=== PATIENT | male | born 1970 | race Caucasian/White ===

== ENCOUNTER 2023-04-17 22:54 | Inpatient (IN) | payer OTHER, SELFPAY ==
[2023-04-17 17:42] VITALS: BP 133/85
[2023-04-17 18:11] LABS: % Basophils 0.5 % (0-2); % Eosinophils 1.7 % (0-6); % Immature Granulocytes 0.4 % (0-0.5); % Lymphocytes 20.8 % (20.5-51.1); % Monocytes 7.4 % (1.7-9.3); % Neutrophils 69.2 % (42.2-75.2); Absolute Basophils 0.1 10^3/uL (0-0.2); Absolute Eosinophils 0.2 10^3/uL (0-0.7); Absolute Lymphocytes 2.1 10^3/uL (1.2-3.4); Absolute Monocytes 0.7 10^3/uL (0.1-0.6); Absolute Neutrophils 6.9 10^3/uL (1.4-6.5); Hematocrit 40.6 % (39.0-52.0); Hemoglobin 14.6 g/dL (13.0-18.0); Mean Corpuscular Hgb 32.3 pg (27.0-31.0); Mean Corpuscular Volume 89.8 fL (80.0-94.0); Mean Platelet Volume 10.2 fL (7.4-10.4); Nucleated Red Blood Cells % 0 % (-); Platelet Count 256 10^3/uL (130-400); Red Blood Cell Count 4.52 10^6/uL (4.70-6.10); Red Cell Dist. Width 12.6 % (11.5-14.5)
[2023-04-17 18:21] LABS: APTT 31.9 Sec (23.4-35.0); INR 1.15; PT 14.5 Sec (11.4-14.6)
[2023-04-17 18:27] LABS: ALT (SGPT) 36 U/L (0-50); AST (SGOT) 35 U/L (17-59); Albumin 4.2 g/dl (3.5-5.0); Alkaline Phosphatase 46 U/L (38-126); Blood Urea Nitrogen 20 mg/dl (9-20); Calcium 9.3 mg/dl (8.4-10.2); Carbon Dioxide 27 mmol/L (22-30); Chloride 98 mmol/L (98-107); Glucose 138 mg/dl (70-99); Potassium 3.6 mmol/L (3.5-5.1); Sodium 135 mmol/L (135-145); Total Bilirubin 1.2 mg/dl (0.2-1.3); Total Protein 6.7 g/dl (6.3-8.2); eGFR > 60.00
[2023-04-17 18:34] LABS: Troponin I < 0.012 ng/ml
--- NOTE | 2023-04-17 21:00 | ED.GENMED ---
History of Present Illness
General
Chief Complaint: Chest Pain
Source: patient
Exam Limitations: none
Time Seen by Provider: 04/17/23 20:23
Nursing documentation reviewed up to this point in time: agreed with
Travel History
Have you had any contact with someone who has COVID-19?: No
Do you have any symptoms of coronavirus? Fever > 100 degrees, chills, cough, shortness of breath, sore throat, loss of taste or smell, muscle aches, or headache?: No
History of Present Illness
History of Present Illness:
Patient is a 52-year-old male with history of NH in 2019, with ICD placement at that time, stent with last NH, September 2022 presents to the ER for evaluation. Patient reports yesterday morning he had bilateral armpit discomfort and was concerned
because he had similar symptoms during his previous NH in September. He does report however it was on a less severe scale. He reports he has had intermittent armpit discomfort since. Today however yesterday he has had some intermittent left arm
numbness. He denies any actual chest pain. He denies any actual shortness of breath. He is on aspirin and Brilinta. He took both doses this morning he is due for second dose of Brilinta this evening. He is followed by Dr. Rufus Rahman.
Review of Systems
Review of Systems
Allergies reviewed?: Yes
All Other Systems: ROS reviewed and negative except as documented in HPI and ROS
Constitutional: Reports no symptoms; Denies fever, fatigue or chills
Respiratory: Reports no symptoms
Cardiac: Reports other (discomfort to b/l arm pits )
ABD/GI: Reports no symptoms; Denies abdominal pain, nausea, vomiting or diarrhea
: Reports no symptoms
Musculoskeletal: Reports no symptoms
Skin: Reports no symptoms
Neurological: Reports no symptoms
Hematologic/Lymphatic: Reports no symptoms
Psychiatric: Reports no symptoms
Phy Exam
General Physical Exam
General Presentation: no apparent distress
General age: appears stated age
General Skin: warm and dry
General Habitus: normal
General Mental: alert
General Hydration: appears well hydrated
Cardiovascular Exam
Cardiovascular Exam: regular rate/rhythm, no murmur and normal peripheral pulses
Pulmonary Exam
Pulmonary Exam: lungs clear and no respiratory distress
Neurological Exam
Neurological Exam: alert and oriented x3
Bo Coma Scale
Eye Opening: Spontaneous
Motor Response: Obeys Commands
Musculoskeletal Exam
Musculoskeletal Exam: full ROM
Skin Exam
Skin Exam: normal color and warm/dry
Psychiatric Exam
Psychiatric Exam: normal mood/affect
Scores
Heart Score for Chest Pain Patients
STEMI patient?: Not applicable
Course
Orders/Labs/Results
Orders:
Orders
04/17/23 17:44
Electrocardiogram (*1) Urgent
Reason for Study: Chest Pain
EKG- Treatment ONCE
04/17/23 17:51
Complete Blood Count/With Diff Urgent
Comprehensive Metabolic Panel Urgent
Creatine Phosphokinase Urgent
Comment: ADD ON
Protime/PTT Urgent
Troponin I Urgent
04/17/23 21:23
Electrocardiogram (*1) Stat
Reason for Study: Other
Other Reason for Exam: chest pain
EKG- Treatment ONCE
04/17/23 21:28
Nitroglycerin Sublingual [Nitrostat (Sublingual)] 0.4 mg SL NOW STA
04/17/23 21:48
Troponin I Urgent
04/17/23 22:20
Add On- LAB Urgent
Tests Added?: cpk
Admit/Transfer Patient As Directed
Co-Sign Provider:
Level of Care: Inpatient admission
Assign to:: Telemetry
Physician / Group: samira boss
Diagnosis: bilat axilla pain concer USa, neck back leg aches con.myalgia statin
Reason for Telemetry: Chest Pain syndromes
Date to Stop Telemetry: 04/19/23
Time to Stop Telemetry: 11:00
Reason for Hospitalization: bilat axilla pain concer USa, neck back leg aches con.myalgia statin
Expected length of stay greater than two midnights?: Yes
ELOS- Estimated Length of Stay in days: 3
I certify the patient meets the requirements for IP care: Yes
Code Status As Directed
Resuscitation Status: Full Code
04/17/23 22:24
Nitroglycerin Sublingual [Nitrostat (Sublingual)] 0.4 mg SL [id number] PRN
04/17/23 22:25
Chest [CR Chest - 2 Views ] Urgent
Comment:
Reason For Exam: cp
04/17/23 23:00
Flush (0.9% Sodium Chloride) [Flush (Nss)] See Dose Instructions IV PER PROTOCOL
04/18/23 00:30
Troponin I Urgent
04/18/23 18:00
Atorvastatin [Lipitor] 40 mg PO QPM
04/19/23 11:00
DC Protocol for Telemetry ONCE
Abnormal Lab Results
04/17/23
17:51
RBC 4.52 L 10^6/uL
(4.70-6.10)
MCH 32.3 H pg
(27.0-31.0)
Absolute Neuts (auto) 6.9 H 10^3/uL
(1.4-6.5)
Absolute Monos (auto) 0.7 H 10^3/uL
(0.1-0.6)
Glucose 138 H mg/dl
(70-99)
04/17/23 17:51
04/17/23 17:51
Vital Signs
Initial and Last Documented VS:
Initial Vital Signs
Temp Pulse Resp BP Pulse Ox
99.2 F 63 18 133/85 99
04/17/23 17:42 04/17/23 17:42 04/17/23 17:42 04/17/23 17:42 04/17/23 17:42
Last Documented Vital Signs
Temp Pulse Resp BP Pulse Ox
99.2 F 65 10 142/91 95
04/17/23 17:42 04/17/23 22:15 04/17/23 22:15 04/17/23 22:00 04/17/23 22:15
Carpet Repairer consulted with Physician
Carpet Repairer consulted with physician?: Yes
Name of Physician Consulted: noh
MDM/Problems Addressed
Differential Diagnosis Includes:
Not limited to ACS
MDM/Problems Addressed:
Patient is a 52-year-old male with history of high cholesterol hypertension diabetes NH x 2 with AICD and stent presents to the ER today with intermittent pain in bilateral and some left intermittent arm numbness. He does report that this
discomfort in his armpits is similar to when he had his previous NH this past September however less intense. No acute findings on EKG negative cardiac troponin initially. Patient has no shortness of breath. No other lab abnormalities. Case reviewed
with ED physician Case reviewed with cardiology on-call Dr. Raymond will give nitro if needed however presently 2139 pt is asymptomatic. Patient require admission with high risk history and concerning symptoms that were similar to previous NH.
2031:repeat trop is neg
Chronic conditions affecting care:
Previous NH x 2 AICD stent hypertension hyperlipidemia high cholesterol
*Pulse Oximetry
Patient hypoxic: no
*EKG
Interpreted by ED Provider?: Yes
Interpretation: abnormal
Heart Rate: 56
Rate: normal
Rhythm: sinus
Ischemia: non-specific ST changes
*Critical Care Note
Total Time (30-74mins, 75-104mins- exclusive of procedures): Not Applicable
Data Reviewed
Review of Other/Old Records Reveals: Labs and Discharge Summary
Patient Management
Discussion with other providers: Second Steward (Dr Vineet Raymond )
ED Attending Note
-
Portions of this chart may have been created with voice recognition software.� Occasional wrong word or��sound alike� substitutions may have occurred due to the inherent limitations of voice recognition software.
Discharge Plan
Departure
Patient Disposition: Admit
Date of Disposition: 04/17/23
Time of Disposition: 21:51
Admit to: Telemetry
Admit to doctor: hospitalist
Presentation/result/management discussed w/ accepting MD/DO: Hospitalist
Patient with high blood pressure during this ER visit?: Yes
Condition: Fair
Covid-19: Not Applicable
Discharge Problem:
Chest pain
Prescriptions:
No Action
aspirin 81 mg Tablet,Chewable
81 mg PO DAILY Qty: 0 0RF
Brilinta 90 mg tablet
90 mg PO Q12H Qty: 60 0RF
carvedilol 12.5 mg tablet
12.5 mg PO BID Qty: 0 0RF
lisinopril-hydrochlorothiazide 20-25 mg tablet
1 tab PO DAILY Qty: 0 0RF
esomeprazole magnesium [Nexium] 20 mg Capsule,Delayed Release(Dr/Ec)
20 mg PO DAILY Qty: 0 0RF
Glucosamine Chondroitin 550-30-1 mg Capsule
1 cap PO BID Qty: 0 0RF
atorvastatin 80 mg tablet
80 mg PO HS Qty: 30 0RF
Referrals:
Radha Hung MD [Family Provider] -
Interventions
Interventions:
*Risk Screen - Suicide Last Done: 04/17/23 17:42
*General Assessment Last Done: 04/17/23 17:42
*Neglect/Abuse Screening Last Done: 04/17/23 17:42
*ED COVID-19 Vaccine History Last Done: 04/17/23 17:42
[2023-04-17 21:21] VITALS: BP 129/84
--- NOTE | 2023-04-17 21:55 | HPS.HSE ---
Addendum entered and electronically signed by Lisa Natarajan MD 04/17/23 22:45:
Patient seen and examined independently with FORENSIC TOXICOLOGIST.� 52-year-old male past medical history of CAD status post stents, NSTEMI, ICD placement, hypertension, GERD, prediabetes, alcohol/marijuana, hypercholesteremia, use presenting with bilateral/left
intermittent armpit pain and left forearm numbness since yesterday morning reminiscent of his prior [place] symptoms.� Denies any symptoms currently.� EKG shows sinus bradycardia with fusion complexes heart rate of 59.� First troponin negative, continue
to trend.� History suggestive of unstable angina.� Check chest x-ray.� Cardiology consulted.� Continue aspirin/Brilinta/statin/Coreg. Check CPK and reduce statin dose due to concern for statin induced myalgias.�
Original Note:
Family Physician
-
Family Physician: Radha Hung
Chief Complaint
-
Bilateral axilla pain with numbness to bilateral arms left greater than right
History of Present Illness
52-year-old male complaining of bilateral axilla discomfort since yesterday a.m. upon wakening he reports some intermittent arm numbness left greater than right. He states this is similar to his previous TX in September 2022. He also reports headache
for the past 2 days, right neck and right mid back spasms for several weeks along with cramping in his legs especially the right lower leg. He reports he spoke with cardiology who advised to go down on his statin from 80 mg to 40 mg although he has
not done this yet. He also reports over the past several days worsening neuropathy to his feet with numbness and tingling. He currently is on aspirin, Brilinta, statin and beta-angelo of which he is compliant. He denies any current headache,
chest pain, shortness of breath, cough, fever, chills, palpitations, abdominal pain, nausea, vomiting, diarrhea, urinary symptoms. 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 He follows with Dr. Rahman [facility] cardiology. He has past medical
history of CAD/TX 2019, [place] 2022 with stent placement, ICD placement, HTN, HLD, GERD.
Medical History
Past Medical History
Past Medical History: Reports Other (TX in 2019 without stent placement, ICD, hypertension, prediabetes)
Past Surgical History: Reports None
Social History
Tobacco: Non-smoker
Alcohol: Former (Daily marijuana reported September 2022 admit)
Drug: Marijuana (Former September 2022)
Personal:
Living: With Family
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
Family History
Family History: CAD (Father [place] multiple stents, paternal uncles, grandfathers TX age 50 to 60s) and Other (Mother history of lung cancer, HTN, DM 2, father HTN, DM 2)
Allergies / Home Medications
Allergies reflects when Allergies were last updated in [facility].
Home Medications with original date entered in [employer]
Allergy/Medication List:
Allergies
Allergy/AdvReac Type Severity Reaction Status Date / Time
No Known Allergies Allergy Verified 10/03/22 17:50
Home Medications
aspirin 81 mg chewable tablet 81 mg PO DAILY Blood clot prevention/tx #0 tabs 10/05/22
atorvastatin 80 mg tablet 80 mg PO HS High cholesterol #30 tabs 10/05/22
carvedilol 12.5 mg tablet 12.5 mg PO BID Blood pressure #0 tabs 10/05/22
esomeprazole magnesium 20 mg capsule,delayed release (Nexium) 20 mg PO DAILY Gastrointestinal issue #0 caps 10/05/22
glucosamine sulf dipot chlr,msm,chond 550 mg-C 30 mg-chivo 1 mg capsule (Glucosamine Chondroitin) 1 cap PO BID Supplement #0 caps 10/05/22
lisinopril 20 mg-hydrochlorothiazide 25 mg tablet 1 tab PO DAILY Blood pressure #0 tabs 10/05/22
ticagrelor 90 mg tablet (Brilinta) 90 mg PO Q12H Blood clot prevention/tx #60 tabs 10/05/22
Review of Systems
-
History Source: Patient and Family
A 12 point ROS was completed and negative except as noted: Yes
Constitutional: Denies Fever, Fatigue or Chills
EENT: Denies Sore Throat, Mouth Pain or Runny Nose
Respiratory: Denies Cough or Trouble Breathing
Cardiac: Reports Other (Bilateral axilla pain with numbness to bilateral arms left greater than right); Denies Chest Pain, Diaphoresis, Palpitations or Syncope
Abdomen/GI: Denies Abdominal Pain, Nausea, Vomiting, Diarrhea, Constipated, Bloody Stools or Black Stools
: Denies Dysuria, Frequency, Flank Pain, Incontinence, Difficulty Voiding or Urgency
Musculoskeletal: Reports Other (Cramping to right side of neck, right mid back, right lower extremity); Denies Joint Pain or Edema
Neurological: Reports Headache (X 2 days currently resolved at present time) and Numbness (Bilateral arms left greater than right, bilateral legs); Denies Dizzy or Weakness
Endocrine: Reports No Symptoms
Hematologic/Lymphatic: Reports No Symptoms
Psych: Reports Calm
Physical Exam
Vital Signs
Vital Signs
Temp Pulse Resp BP Pulse Ox
99.2 F 63 18 129/84 100
04/17/23 17:42 04/17/23 17:42 04/17/23 17:42 04/17/23 21:21 04/17/23 21:22
Physical Exam
General: Comfortable, Conversant and Pain (2 out of 10); No Fever or Chills
HEENT: NormoCephalic, Anicteric, Moist mucous membranes, PERRLA, [place] Conjunctivae and No Ptosis
Respiratory: Clear; No Wheezes, Rales or Rhonchi
Cardiac: S1/S2 and Bradycardia (Sinus); No Murmur, Rub, Gallop or Peripheral Edema
Breast: Deferred by me
GI: Soft, Non Tender, Non Distended, Normal Bowel Sounds and No Hepatosplenomegaly
Rectal: Deferred by Provider
Genito-urinary: Deferred by me
Musculoskeletal: No Clubbing, No Cyanosis and No Edema
Neuro: AO x 3, No Motor Deficits, Nonfocal/grossly intact, No Sensory Deficits and DTR's Intact & Symmetrical; No Slurred Speech, Facial Droop or Tremors
Psych: Calm
Laboratory Results
-
04/17/23 17:51
04/17/23 17:51
Laboratory Results
PT 14.5 Sec (11.4-14.6) 04/17/23 17:51
INR 1.15 04/17/23 17:51
APTT 31.9 Sec (23.4-35.0) 04/17/23 17:51
Total Bilirubin 1.2 mg/dl (0.2-1.3) 04/17/23 17:51
AST 35 U/L (17-59) 04/17/23 17:51
ALT 36 U/L (0-50) 04/17/23 17:51
Alkaline Phosphatase 46 U/L (38-126) 04/17/23 17:51
Troponin I < 0.012 ng/ml 04/17/23 17:51
Impression/Plan
-
Impression/plan:
Admit to telemetry
#Bilateral arm pain concern for USA
#Hx TX/stents September 20222019
-Continue aspirin, statin, Brilinta, carvedilol 12.5 mg twice daily
-SL nitro as needed chest pain
-Consult cardiology
-Trend troponins 0.012, trend troponins and EKG
-Check lipid profile, reduce statin from 80 mg to 40 mg at bedtime, check CPK given muscle cramping to neck back legs times several weeks
-Check CXR
EKG: Sinus bradycardia 59 bpm otherwise normal, QTc 382 MS
#Neck, back, leg cramping concern for statin induced myalgias
#HLD
-Check lipid profile, reduce statin from 80 mg to 40 mg at bedtime, check CPK given muscle cramping to neck back legs times several weeks
#DM 2
BS 138
Accu-Cheks with SSI, check HgbA1c
#GERD
-Continue Nexium or equivalent
DVT prophylaxis
Continue Brilinta
Full code
[2023-04-17 22:00] VITALS: BP 142/91
[2023-04-17 22:21] LABS: Troponin I < 0.012 ng/ml
[2023-04-17 22:51] LABS: Creatine Phosphokinase 170 U/L (55-170)
[2023-04-18 00:35] VITALS: BP 135/83; BMI 26.8
[2023-04-18] MEDS: BRILINTA 90 MG PO ×2 (01:09→10:10)
[2023-04-18 03:05] LABS: % Basophils 0.6 % (0-2); % Immature Granulocytes 0.2 % (0-0.5); % Lymphocytes 26.8 % (20.5-51.1); % Monocytes 10.5 % (1.7-9.3); % Neutrophils 59.9 % (42.2-75.2); Absolute Basophils 0.1 10^3/uL (0-0.2); Absolute Eosinophils 0.2 10^3/uL (0-0.7); Absolute Lymphocytes 2.4 10^3/uL (1.2-3.4); Absolute Monocytes 0.9 10^3/uL (0.1-0.6); Absolute Neutrophils 5.3 10^3/uL (1.4-6.5); Hematocrit 39.5 % (39.0-52.0); Hemoglobin 14.1 g/dL (13.0-18.0); Mean Corp Hgb Conc. 35.7 g/dL (33.0-37.0); Mean Corpuscular Hgb 32.1 pg (27.0-31.0); Mean Platelet Volume 10.1 fL (7.4-10.4); Nucleated Red Blood Cells % 0 % (-); Platelet Count 214 10^3/uL (130-400); Red Blood Cell Count 4.39 10^6/uL (4.70-6.10); Red Cell Dist. Width 12.5 % (11.5-14.5); White Blood Cell Count 8.9 10^3/uL (4.8-10.8)
[2023-04-18 03:30] LABS: Troponin I < 0.012 ng/ml
[2023-04-18 03:31] LABS: Blood Urea Nitrogen 18 mg/dl (9-20); Calcium 8.9 mg/dl (8.4-10.2); Carbon Dioxide 27 mmol/L (22-30); Chloride 104 mmol/L (98-107); Estimated Creatinine Clearance 119 ml/min; Glucose 122 mg/dl (70-99); HDL Cholesterol 42 mg/dl; LDL Cholesterol, Calculated 52 mg/dl; Potassium 3.6 mmol/L (3.5-5.1); Sodium 134 mmol/L (135-145); Total Cholesterol 112 mg/dl (50-199); Triglyceride 92 mg/dl (10-149); Very Low Density Lipoprotein 18 mg/dl (0-30); eGFR > 60.00
[2023-04-18 03:40] VITALS: BP 110/56
[2023-04-18 07:00] VITALS: BP 128/77
[2023-04-18 07:46] LABS: Glucose - Point of Care 103 mg/dl (70-99)
[2023-04-18 08:37] LABS: Glycohemoglobin (HgbA1c) 6.3 % (4.0-5.6)
[2023-04-18] MEDS: LOW STRENGTH ASPIRIN 81 MG PO (08:52)
[2023-04-18] MEDS: PROTONIX 40 MG PO (08:52)
[2023-04-18] MEDS: COREG 12.5 MG PO (08:53)
--- NOTE | 2023-04-18 09:00 | CON.CAR ---
Addendum entered and electronically signed by Maldonado Savage MD 04/18/23 14:58:
I saw and examined the patient.
The Automobile Dealer's note was reviewed and I agree with the note.
Comment: Briefly, 52-year-old man past medical history of cardiac arrest s/p AICD (2019), CAD c/b NSTEMI (2022) who underwent PCI wiht drug-eluting stents to the LAD and RCA now presenting with bilateral axillary and arm discomfort/numbness which he
identifies as an anginal equivalent. Tells me that this discomfort has been ongoing intermittently for some time, is very mild (1 out of 10) and does not seem to be exertional in nature by his report. Troponin has been serially undetectable here.
ECG is nonischemic appearing.
Given that his pain is atypical by definition and he has ruled out for ACS we will arrange for outpatient ischemic evaluation; plan for exercise nuclear stress test to improve sensitivity
Continue DAPT, high intensity statin and beta-angelo
Stable for discharge from cardiology perspective
Original Note:
Consultation
Consultation Request
Date/Time Consultation Requested: 04/17/2023
Date/Time Consultation Performed: 04/18/2023
Requesting Provider: Dr. Natarajan
Performing Provider: Daysi Frankel PA-C for Dr. Savage
Reason for Consultation: Chest pain
Medical History
-
History of Present Illness:
Patient is a 52-year-old male with past medical history significant for cardiac arrest in setting of [place] August 2019 with no culprit coronary lesion on catheterization status post ICD, coronary artery disease with NSTEMI September 2022 with LAD and RCA DAVID,
hypertension, hyperlipidemia who presents to emergency department 04/17/2023 with bilateral arm/axillary discomfort, numbness which started 04/16/2023. Patient admits over the last 1 to 2 weeks he has been having intermittent pain in his upper back,
arms, back and legs after a long day at work. It was recommended he reduce his atorvastatin from 80 mg to 40 mg but he did not do this. He then developed bilateral axillary/arm pain (Lt>Rt) associated with some back discomfort which was similar to
his prior angina symptoms when he had his LA in September 2022. Given the symptoms he decided to come to the emergency department for evaluation. EKG on presentation showed sinus bradycardia without suggestion of ischemia. Troponin x 3 undetectable.
Chest x-ray no acute abnormality. CPK 170.
He continues to have intermittent bilateral shoulder/arm discomfort that is worse when he wakes up. Lasts for several seconds to several minutes. This seem less noticeable when he is active. He denies GERD or reflux symptoms that he had when he had
his LA.
Past medical history:
CAD
NSTEMI, peak trop 0.67 10/03/2022
s/p �mid LAD with a 3.0 x 38 mm Xience stent and �mid right coronary artery with a 3.5 x 15 mm Xience stent with noted ELEVATOR REPAIRER of OM3 (10/05/2023)
History of cardiac arrest in the setting of [place] in 08/2019 at [facility]
No culprit vessel by cardiac catheterization reportedly noted 08/2019
Status post single-chamber Biotronik ICD 08/2019
Hypertension
Hyperlipidemia
Past Medical History
Past Medical History: Other
Past Surgical History: Cardiac (cardiac caths x 2) and Tonsilectomy
Social History
Tobacco: Non-Smoker
Alcohol: Occasional
Drug: Marijuana (former)
Personal:
Living: With Family
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
Family History
Family History: CAD (father stents x 4), Cancer (mother lung CA), Diabetes and Hypertension
Allergies / Home Medications
Allergy/AdvReac Type Severity Reaction Status Date / Time
No Known Allergies Allergy Verified 10/03/22 17:50
Medication Instructions Recorded Confirmed Type
aspirin 81 mg chewable tablet 81 mg PO DAILY Blood clot 10/05/22 Rx
prevention/tx #0 tabs
atorvastatin 80 mg tablet 80 mg PO HS High cholesterol #30 10/05/22 Rx
tabs
carvedilol 12.5 mg tablet 12.5 mg PO BID Blood pressure #0 10/05/22 10/03/22 Rx
tabs
esomeprazole magnesium 20 mg 20 mg PO DAILY Gastrointestinal 10/05/22 10/03/22 Rx
capsule,delayed release (Nexium) issue #0 caps
glucosamine sulf dipot 1 cap PO BID Supplement #0 caps 10/05/22 10/03/22 Rx
chlr,msm,chond 550 mg-C 30 mg-chivo
1 mg capsule (Glucosamine
Chondroitin)
lisinopril 20 1 tab PO DAILY Blood pressure #0 10/05/22 10/03/22 Rx
mg-hydrochlorothiazide 25 mg tablet tabs
ticagrelor 90 mg tablet (Brilinta) 90 mg PO Q12H Blood clot 10/05/22 Rx
prevention/tx #60 tabs
Review of Systems
-
History Source: Patient
All other systems: Negative unless noted
Physical Exam
Vital Signs
Temp Pulse Resp BP Pulse Ox
98.7 F 60 18 128/77 99
04/18/23 07:00 04/18/23 08:53 04/18/23 07:00 04/18/23 08:53 04/18/23 07:00
GEN: No distress, awake, Ox3
HEENT: supple, anicteric, mmm
LUNGS: CTA, no wheezes/rales
CV: Reg, S1/S2, no murmur, rub or gallop
ABD: soft, BS+, NT/ND
EXT: No edema, clubbing or cyanosis
NEURO: Gross non-focal
SKIN: No rash, warm, dry, pink
Lab Results
04/18/23 02:50
04/18/23 02:50
Troponin I < 0.012 ng/ml 04/18/23 02:50
Impression / Plan
-
PCP:�Garcia Lambert
Composing Room Machinist Apprentice: Dr. Sohan Rahman
Impression:
Presents 04/17/2023 with bilateral arm/axillary discomfort, numbness
Headache
Back pain
Leg pain
CAD
NSTEMI, peak trop 0.67 10/03/2022
s/p �mid LAD with a 3.0 x 38 mm Xience stent and �mid right coronary artery with a 3.5 x 15 mm Xience stent with noted ELEVATOR REPAIRER of OM3 (10/04/2022)
History of cardiac arrest in the setting of [place] in 08/2019 at [facility]
No culprit vessel by cardiac catheterization reportedly noted 08/2019
Status post single-chamber Biotronik ICD 08/2019
Hypertension
Hyperlipidemia
ECHO 10/04/2022: EF 50 to 55%, hypokinesis of mid to apical septum, apical inferior, apical anterior juarez, mild concentric LVH, ICD wire in right ventricle noted, mild MR, aortic sclerosis, trace TR, PAP 20 to 25 mmHg
Cardiac catheterization 10/04/2022: LM: NL ; LAD: 95% mid stenosis s/p 3.0 x 38 mm Xience stent, apical tandem 50 to 60% narrowing with distal vessel supplying inferior wall; RAMUS: 30% mid; LCX: Luminal irregularities except OM 300% occluded at
origin with right to left collaterals; RCA: 70% mid stenosis s/p 3.5 x 15 mm Xience stent. Digital single-plane left ventricular ejection fraction is visually estimated at 50%.
Plan:
Patient is a 52-year-old male with past medical history significant for cardiac arrest in setting of [place] August 2019 with no culprit coronary lesion on catheterization status post ICD, coronary artery disease with NSTEMI September 2022 with LAD and RCA DAVID,
hypertension, hyperlipidemia who presents to emergency department 04/17/2023 with bilateral arm/axillary discomfort, numbness which started 04/16/2023. Patient admits over the last 1 to 2 weeks he has been having intermittent pain in his upper back,
arms, back and legs after a long day at work. It was recommended he reduce his atorvastatin from 80 mg to 40 mg but he did not do this. He then developed bilateral axillary/arm pain (Lt>Rt) associated with some back discomfort which was similar to
his prior angina symptoms when he had his [place] in September 2022. Given the symptoms he decided to come to the emergency department for evaluation. EKG on presentation showed sinus bradycardia without suggestion of ischemia. Troponin x 3 undetectable.
Chest x-ray no acute abnormality. CPK 170.
He continues to have intermittent bilateral shoulder/arm discomfort that is worse when he wakes up. Lasts for several seconds to several minutes. This seem less noticeable when he is active. He denies GERD or reflux symptoms that he had when he had
his [place].
-Presents 04/17/2023 with bilateral arm/axillary discomfort, numbness and upper back pain which are reminiscent of his prior [place] but not as severe and no GERD symptoms.
-Troponin x 3 undetectable, EKG without evidence of ischemia. Would consider outpatient ischemic eval with exercise nuclear stress test.
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 Consider Xray of Cspine and or outpt MRI (defer to primary service)
-Continue aspirin, Brilinta, Coreg, lisinopril/HCTZ
-H/o VT arrest w/ Biotronic ICD. Last remote interrogation 04/17/23 shows no evidence of atrial or ventricular arrhythmias with stable lead impedances and battery longevity. Transthoracic impedance is dipping down which could be suggestive of volume
overload. proBNP 25 and denies SOB/weight gain. No evidence of HF on exam.
-Lipids 04/18/2023 TC 112, HDL 42, LDL 52, triglycerides 92 are at goal. Given myalgias could consider alternative statin such as rosuvastatin. Although CPK level is normal.
-Hemoglobin A1c 6.3%. Continue Jardiance
-CPK 170, within normal range.
Data Reviewed
-
EKG: Report Reviewed by me, Discussed with Physician and Discussed with Patient
Radiology: Report Reviewed by me, Discussed with Physician and Discussed with Patient
[2023-04-18 10:30] LABS: NT-proBNP 25.2 pg/ml
[2023-04-18 11:00] VITALS: BP 130/75
--- NOTE | 2023-04-18 12:00 | W.PN.HOSP.TC ---
Addendum entered and electronically signed by Thad Frias DO 04/18/23 14:45:
I spoke with cardiology, Dr. Savage, he is okay with discharge today. Plan for outpatient stress test and they will arrange.
Original Note:
Today's Communication/Plan
-
Await cardiology input
Assessment / Plan
Assessment / Plan
Gen-AAOx3, NAD
HEENT-NC, AT, anicteric, clear oral mm
Neck-supple
CV-reg, no M, +S1/S2
Lungs-clear B/L
Abd-soft, NT, ND
Ext-no edema
Musculoskeletal-no cyanosis, clubbing
Skin-warm and dry
Neuro-grossly non-focal
Psych-calm, cooperative
Upper extremity paresthesias, bilateral -no evidence of ACS. Cervical radiculopathy possible. Recommend outpatient cervical spine MRI, discussed with patient.
Hyponatremia -sodium 134. Will discontinue HCTZ.
CAD -troponins negative. Continue medical management. Cardiology consulted.
Impaired fasting glucose -hemoglobin A1c 6.3%. Diet and exercise will help.
Hyperlipidemia -continue atorvastatin.
Essential hypertension -stable.
ICD placement -after cardiac arrest and acute NH in August 2019.
GERD
Full code
Dispo -likely discharge home later today if okay with cardiology. Will need outpatient follow-up.
Anticipated Discharge: Today
Subjective/Interval History
-
Date of Service: April 18, 2023
Patient seen and examined. Denies chest pain. Has vague tingling sensation in both arms and armpits, intermittent in nature.
Objective Data
-
Labs:
Laboratory Results
04/18/23
02:50
WBC 8.9
Hgb 14.1
Hct 39.5
Plt Count 214
Sodium 134 L
Potassium 3.6
Chloride 104
Carbon Dioxide 27
BUN 18
Creatinine 0.8
Glucose 122 H
Calcium 8.9
Vital Signs:
Vital Signs
Temp Pulse Resp BP Pulse Ox
98.7 F 60 18 128/77 99
04/18/23 07:00 04/18/23 08:53 04/18/23 07:00 04/18/23 08:53 04/18/23 07:00
Review of Systems
-
History Source: Patient
All other systems: Reviewed and negative
[2023-04-18] MEDS: ORETIC 25 MG PO (12:06)
[2023-04-18] MEDS: JARDIANCE 10 MG PO (12:06)
[2023-04-18] MEDS: ZESTRIL 20 MG PO (12:06)
[2023-04-18 12:10] LABS: Glucose - Point of Care 101 mg/dl (70-99)
[2023-04-18 12:17] VITALS: BMI 26.3
--- NOTE | 2023-04-18 14:52 | W.DS.TRANS ---
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
-
Discharge Instructions:
Discharge Diagnosis/Procedures Upper extremity paresthesias
Diet Low Fat,Low Cholesterol
Activity As tolerated
Driving Restrictions As prior to admission
Bathing Restrictions None
Stop these medications: Stop hydrochlorothiazide
Instructions:
Stand-Alone Forms:
Changes to Home Medications: Yes
Discharge Medications:
DC Medications w/original date entered in [employer]
aspirin 81 mg chewable tablet 81 mg PO DAILY Blood clot prevention/tx #0 tabs 10/05/22
atorvastatin 80 mg tablet 80 mg PO HS High cholesterol #30 tabs 10/05/22
carvedilol 12.5 mg tablet 12.5 mg PO BID Blood pressure #0 tabs 10/05/22
esomeprazole magnesium 20 mg capsule,delayed release (Nexium) 20 mg PO DAILY Gastrointestinal issue #0 caps 10/05/22
glucosamine sulf dipot chlr,msm,chond 550 mg-C 30 mg-chivo 1 mg capsule (Glucosamine Chondroitin) 1 cap PO BID Supplement #0 caps 10/05/22
ticagrelor 90 mg tablet (Brilinta) 90 mg PO Q12H Blood clot prevention/tx #60 tabs 10/05/22
empagliflozin 10 mg tablet (Jardiance) 10 mg PO DAILY #0 tabs 04/18/23
lisinopril 20 mg tablet 20 mg PO DAILY #30 tabs 04/18/23
Home Medication Changes
Stop hydrochlorothiazide
Pending Results: No
--- NOTE | 2023-04-18 15:03 | CM ---
Chart reviewed. Spoke with pt at bedside
Lives and daughter in 2 story home
Independent, drives
Reports has a glucometer and BP cuff at home
Has ride at d/c
Denies past SNF/HH
PCP - Dr Paige Hung
Pharm - [facility]
Anticipate home to previous setting - no needs
== END 2023-04-18 16:52 | disposition home or self-care (01) | DRG 74 ==
LOC: 3 WEST ACU 22:54
PROVIDERS: Clinical Nurse Specialist Family Health; Emergency Medicine; Nurse Practitioner; ADMITTING PHYSICIAN Hospitalist; ATTENDING PHYSICIAN Hospitalist; EMERGENCY PHYSICIAN Emergency Medicine; FAMILY PHYSICIAN Family Medicine; OTHER PHYSICIAN Internal Medicine Cardiovascular Disease
DX: G62.9 Polyneuropathy, unspecified (principal); E87.1 Hypo-osmolality and hyponatremia; I25.2 Old myocardial infarction; Z79.82 Long term (current) use of aspirin; I10 Essential (primary) hypertension; Z95.810 Presence of automatic (implantable) cardiac defibrillator; Z95.5 Presence of coronary angioplasty implant and graft; E78.00 Pure hypercholesterolemia, unspecified; K21.9 Gastro-esophageal reflux disease without esophagitis; F12.90 Cannabis use, unspecified, uncomplicated; E11.8 Type 2 diabetes mellitus with unspecified complications; Z86.74 Personal history of sudden cardiac arrest; I25.10 Atherosclerotic heart disease of native coronary artery without angina pectoris
CPT/HCPCS: 71046; 80048; 80053; 80061; 82550; 82962; 83036; 83880; 84484; 85025; 85610; 85730; 93005; 99285

== ENCOUNTER → 2023-05-17 06:44 | Outpatient (REF) | payer OTHER, SELFPAY | LOC: RCS 06:44 | PROVIDERS: ATTENDING PHYSICIAN Internal Medicine Cardiovascular Disease; FAMILY PHYSICIAN Family Medicine | DX: I25.10 Atherosclerotic heart disease of native coronary artery without angina pectoris (principal); M79.602 Pain in left arm; R07.9 Chest pain, unspecified | CPT/HCPCS: 78452; 93017; A9500 ==